=== PATIENT | male | born 1980 | race Caucasian/White ===

== ENCOUNTER → 2016-04-14 | Outpatient (CLI) | payer OTHER ==
[~2016-04-14] MED LIST: ADVIN25/60 INH; ALBUAER2 INH; HMLI SC; NVLGI/PEN SC; ONDA4TAB7 SL; PANT1TAB48 PO
[2016-04-14 15:56] LABS: ALT/SGPT 62 U/L (12-78); BLOOD UREA NITROGEN 11 mg/dl (7-18); BUN/CREATININE RATIO 9.9 (10-20); CALCIUM 8.9 mg/dl (8.5-10.1); CARBON DIOXIDE 25 mmol/L (21-32); CHLORIDE 104 mmol/L (98-107); CHOLESTEROL 191 mg/dl (0-200); GLUCOSE 135 mg/dl (70-99); POTASSIUM 3.7 mmol/L (3.5-5.1); SODIUM 138 mmol/L (136-145)
[2016-04-14 16:06] LABS: ALB/GLOB RATIO 1.1 (0.9-2); ALKALINE PHOSPHATASE 82 U/L (45-117); AST/SGOT 33 U/L (15-37); CHOLESTEROL/HDL RATIO 5.6; HDL CHOLESTEROL 34 mg/dl; TRIGLYCERIDES 432 mg/dl (0-150)
[2016-04-14 16:11] LABS: RATIO 5.7 mcg/mg (0-30.0)
[2016-04-15 06:46] LABS: ESTIMATED AVERAGE GLUCOSE 177 mg/dl; HA1C FLAG Normal (Normal)
== END | disposition home or self-care (01) ==
LOC: C.LAB1850 14:55
PROVIDERS: ATTEND Nurse Practitioner Family
DX: E10.9 Type 1 diabetes mellitus without complications (principal); E55.9 Vitamin D deficiency, unspecified

== ENCOUNTER → 2016-11-20 | Outpatient (CLI) | payer OTHER ==
[2016-11-20 15:16] LABS: CHOLESTEROL/HDL RATIO 4.7
== END | disposition home or self-care (01) ==
LOC: C.LAB1850 13:56
PROVIDERS: ATTEND Nurse Practitioner Family
DX: E78.5 Hyperlipidemia, unspecified (principal); E10.9 Type 1 diabetes mellitus without complications

== ENCOUNTER → 2017-09-25 | Outpatient (CLI) | payer OTHER ==
[~2017-09-25] MED LIST changes: +PANT1TAB3 PO; -PANT1TAB48 PO
[2017-09-25 12:42] LABS: ALBUMIN 3.9 gm/dl (3.4-5.0); ALKALINE PHOSPHATASE 76 U/L (45-117); ALT/SGPT 48 U/L (12-78); AST/SGOT 20 U/L (15-37); BLOOD UREA NITROGEN 25 mg/dl (7-18); CALCIUM 8.9 mg/dl (8.5-10.1); CARBON DIOXIDE 24 mmol/L (21-32); CHOLESTEROL 178 mg/dl (0-200); CREATININE 1.25 mg/dl (0.60-1.40); GLUCOSE 293 mg/dl (70-99); LDL CHOLESTEROL CALCULATED 77 mg/dl; SODIUM 135 mmol/L (136-145); TOTAL PROTEIN 7.6 gm/dl (6.4-8.2)
[2017-09-25 12:53] LABS: HEMOGLOBIN A1C 8.6 % (4.5-5.6)
[2017-09-25 12:56] LABS: CREATININE RANDOM URINE 87.6 mg/dl
== END | disposition home or self-care (01) ==
LOC: C.LAB1850 09:40
PROVIDERS: ATTEND Physician Assistant
DX: R39.9 Unspecified symptoms and signs involving the genitourinary system (principal); E10.9 Type 1 diabetes mellitus without complications